=== PATIENT | male | born 2005 | race Caucasian/White ===

== ENCOUNTER 2024-07-23 12:54 | Emergency (ER) | payer BC, SELFPAY ==
[2024-07-23 12:57] VITALS: BP 134/85
[2024-07-23 13:45] VITALS: BMI 21.1
--- NOTE | 2024-07-23 14:35 | ED.GENMED ---
History of Present Illness
<Laura Jessica PA-C - Last Filed: 07/23/24 19:22>
General
Chief Complaint: Head Injury
Source: patient
Exam Limitations: none
Time Seen by Provider: 07/23/24 14:16
Nursing documentation reviewed up to this point in time: agreed with
History of Present Illness
History of Present Illness:
19-year-old male presenting to the emergency department for evaluation of head injury. Patient states that he was under his desk fixing a door a few days ago when he stood up hitting the back of his head on the desk. There was no loss of
consciousness. However�patient states he has had lingering headache, brain fog, lightheadedness since. He denies any fainting episodes. He denies any nausea or vomiting. He denies any blurry vision, double vision. Patient denies any true
dizziness. Patient denies any neck pain or back pain. He denies any difficulties walking.
Patient was seen in urgent care this morning and sent to the emergency department for further evaluation.
Patient lives at home with his parents.
Review of Systems
<Laura Jessica PA-C - Last Filed: 07/23/24 19:22>
Review of Systems
Allergies reviewed?: Yes
All Other Systems: ROS reviewed and negative except as documented in HPI and ROS
Phy Exam
<Laura Jessica PA-C - Last Filed: 07/23/24 19:22>
Physical Exam
Physical Exam:
Vitals: Patient's vital signs are stable. Afebrile
General: Patient is well appearing, no acute distress. Nontoxic appearing
Skin: Warm and dry, no rashes or lesions
Head: Normocephalic, atraumatic
Eyes: Sclera nonicteric. Pupils equal round and reactive to light bilaterally. EOMs intact. No nystagmus.
Throat: Protecting airway
Neck: Normal ROM, no cervical spine tenderness, no meningismus
Cardiac: Regular rate and rhythm, no murmurs.
Pulm: Normal respiratory effort, no wheezes, rales, rhonchi heard on exam.
Abdomen: No abdominal tenderness.
Extremities: No evidence of cyanosis or edema. Strength out of 5 in upper and lower extremities. Sensation fully intact.
Neuro: AAOx3. CN II-XII intact. No focal neurologic deficits. Normal finger-nose. Steady gait. Fluid speech
Psychiatric: Normal affect.
Course
<Laura Jessica PA-C - Last Filed: 07/23/24 19:22>
Orders/Labs/Results
Orders:
Orders
07/23/24 14:33
Ibuprofen [Motrin] 400 mg PO NOW STA
Vital Signs
Initial and Last Documented VS:
Initial Vital Signs
Temp Pulse Resp BP Pulse Ox
97.8 F 60 16 134/85 100
07/23/24 12:57 07/23/24 12:57 07/23/24 12:57 07/23/24 12:57 07/23/24 12:57
Last Documented Vital Signs
Temp Pulse Resp BP Pulse Ox
97.8 F 60 16 134/85 100
07/23/24 12:57 07/23/24 12:57 07/23/24 12:57 07/23/24 12:57 07/23/24 12:57
<Ade Reid MD - Last Filed: 07/23/24 15:30>
Orders/Labs/Results
Orders:
Orders
07/23/24 14:33
Ibuprofen [Motrin] 400 mg PO NOW STA
Vital Signs
Initial and Last Documented VS:
Initial Vital Signs
Temp Pulse Resp BP Pulse Ox
97.8 F 60 16 134/85 100
07/23/24 12:57 07/23/24 12:57 07/23/24 12:57 07/23/24 12:57 07/23/24 12:57
Last Documented Vital Signs
Temp Pulse Resp BP Pulse Ox
97.8 F 60 16 134/85 100
07/23/24 12:57 07/23/24 12:57 07/23/24 12:57 07/23/24 12:57 07/23/24 12:57
<Laura Jessica PA-C - Last Filed: 07/23/24 19:22>
MDM/Problems Addressed
Differential Diagnosis Includes:
Not limited to: Concussion, contusion, skull fracture, intraparenchymal hemorrhage, etc.
MDM/Problems Addressed:
18-year-old male presenting with dull headache and lightheadedness following minor head injury a few days ago. There was no loss of conscious at that time. Denies any associated nausea/vomiting, visual changes, confusion, neck pain, etc. Patient
has stable vital signs on arrival. On exam�patient is extremely well-appearing. There is no evidence of head or neck trauma. Patient is fluent speech and steady gait. No focal neurologic deficits noted on exam. Mechanism of injury very low
risk. History and exam consistent with mild concussion. Do not suspect skull fracture or serious intracranial injury. Do not feel CT is indicated this time given physical exam and low risk injury however shared decision-making was utilized with
patient regarding CT head versus monitoring at home. Patient agrees with holding off on CT at this time. Advised supportive care at home. Patient stable for discharge with primary care follow-up. Return precautions discussed.
Chronic conditions affecting care:
N/A
Acute Exacerbation and/or Progression of Chronic Illness:
N/A
<Laura Jessica PA-C - Last Filed: 07/23/24 19:22>
*Pulse Oximetry
Patient hypoxic: no
*EKG
Interpreted by ED Provider?: NA
*License Registration Examiner Interpretation
Rate: License Registration Examiner- N/A
*Critical Care Note
Total Time (30-74mins, 75-104mins- exclusive of procedures): Not Applicable
ED Attending Note
<Laura Jessica PA-C - Last Filed: 07/23/24 19:22>
-
Portions of this chart may have been created with voice recognition software.� Occasional wrong word or��sound alike� substitutions may have occurred due to the inherent limitations of voice recognition software.
<Ade Reid MD - Last Filed: 07/23/24 15:30>
ED Attending Note
Patient seen and examined by attending physician: Yes
I performed the substantive portion of visit, reviewed & personally made and approve the management plan that is documented in note by myself or SARAH.: Yes
ED Attending Note:
19-year-old male who hit his head while he was under a desk, no loss of conscious, no visible injury. Initially had very short-lived lightheadedness which is now fully resolved. He has a mild headache. Denies other symptoms such as photophobia,
nausea, vomiting, focal weakness, numbness, visual changes. On exam, patient is completely neuro intact without visible injury. Head CT would not be indicated at this time as history and physical consistent with mild concussion but not suggestive
of more serious illness. Discussed with patient importance of follow-up and reasons return to the ER.
Discharge Plan
Departure
Patient Disposition: Home (Routine Discharge)
Date of Disposition: 07/23/24
Time of Disposition: 15:23
Patient with high blood pressure during this ER visit?: No
Condition: Good
Covid-19: Not Applicable
Discharge Problem:
Minor head injury
Instructions: Concussion, Adult (DC), Minor Head Injury (DC)
Referrals:
NONE,* [Family Provider] -
Activity Restrictions/Additional Instructions:
RETURN TO THE EMERGENCY DEPARTMENT WITH ANY SEVERE HEADACHE/NECK PAIN, INTRACTABLE NAUSEA/VOMITING, CHANGES IN VISION, CONFUSION, WORSENING IN CURRENT SYMPTOMS OR ANY OTHER CONCERNS
-As discussed�it is important stay well-hydrated. Get plenty of rest. You should limit your screen time.
-Follow-up with your primary care for further evaluation/management and to ensure that symptoms are improving
Monitor your symptoms closely and return to the emergency department with any acute worsening/new symptoms or any other concerns
Interventions
Interventions:
*Risk Screen - Suicide Last Done: 07/23/24 15:34
*General Assessment Last Done: 07/23/24 13:45
*Neglect/Abuse Screening Last Done: 07/23/24 15:34
ED- Fall Risk Assessment Last Done: 07/23/24 13:45
*ED COVID-19 Vaccine History Last Done: 07/23/24 13:45
*Nursing Disposition Last Done: 07/23/24 15:34
ED- Neurological Assessment Last Done: 07/23/24 13:45
ED-Skin Assessment Last Done: 07/23/24 13:45
Discharge Date and Time
Discharge Date/Time: 07/23/24 15:35
Print Language: NAURUAN
[2024-07-23] MEDS: MOTRIN 400 MG PO (14:42)
== END 2024-07-23 15:35 | disposition home or self-care (01) ==
LOC: EMR 12:54
PROVIDERS: EMERGENCY PHYSICIAN Emergency Medicine
DX: S09.90XA Unspecified injury of head, initial encounter (principal); W22.09XA Striking against other stationary object, initial encounter
CPT/HCPCS: 99282